=== PATIENT | female | born 1985 | race Caucasian/White ===

== ENCOUNTER 2019-01-02 10:54 | Emergency (ER) | payer OTHER ==
[~2019-01-02] VITALS: Ht 170.2 cm; Wt 64.3 kg
[2019-01-02 10:59] VITALS: BP 107/74
--- NOTE | 2019-01-02 11:18 | NUR ---
requested records from [facility].
[2019-01-02 11:50] LABS: ALANINE AMINOTRANSFERASE 39 U/L (12-78); ALBUMIN 2.2 g/dL (3.4-5.0); ANION GAP 9 mmol/L (5-15); CALCIUM 7.9 mg/dL (8.5-10.1); CHLORIDE 103 mmol/L (98-107); CREATININE 0.57 mg/dL (0.55-1.02)
[2019-01-02 11:51] LABS: INTERNATIONAL NORMALIZED RATIO 1.47 (0.93-1.1); PROTHROMBIN TIME 15.4 Seconds (9.6-11.5)
[2019-01-02 11:52] LABS: MEAN CORPUSCULAR HEMOGLOBIN 40.9 pg (27.0-34.8); MEAN CORPUSCULAR HGB CONC 34.5 g/dL (32.4-35.8); MEAN CORPUSCULAR VOLUME 118.6 fL (80-100); MEAN PLATELET VOLUME 8.1 fL (7.4-10.4); PLATELET COUNT 304 x10^3/uL (130-400); RED BLOOD COUNT 2.27 x10^6/uL (3.82-5.3); RED CELL DISTRIBUTION WIDTH 20.2 % (9.6-15.2)
[2019-01-02 11:56] LABS: ALKALINE PHOSPHATASE 138 U/L (45-117); TOTAL PROTEIN 6.6 g/dL (6.4-8.2)
[2019-01-02 11:57] LABS: BILIRUBIN,TOTAL 18.5 mg/dL (0.2-1.0)
[2019-01-02 12:21] LABS: MD YES
[2019-01-02 12:24] LABS: EOS#(MANUAL) 0.22 x10^3/uL (0.0-0.4); EOS% (MANUAL) 2 % (1-7); LYMPHS% (MANUAL) 9 % (22-44); MONOS% (MANUAL) 9 % (2-9); SEG#(MANUAL) 8.88 x10^3/uL (1.8-6.8); SEGS% (MANUAL) 80 % (42-75)
[2019-01-02 12:25] LABS: POLYCHROMASIA 1+
[2019-01-02 12:26] LABS: <PLATELET ESTIMATE> ADEQUATE; <PLT MORPHOLOGY> NORMAL PLT MORPH
[2019-01-02 12:27] LABS: ANISOCYTOSIS 1+
--- NOTE | 2019-01-02 12:34 | NUR ---
dr denny spoke with dr barreto
--- NOTE | 2019-01-02 12:34 | NUR ---
received records from [facility].
--- NOTE | 2019-01-02 12:56 | NUR ---
BREAK RN: Discharge instructions discussed with patient, verbalizes understanding. Prescription provided to patient. Patient ambulates with steady gait to discharge desk.
[2019-01-02 12:59] LABS: MICROSCOPIC INDICATED
[2019-01-02 13:05] LABS: CULTURE INDICATED? YES
== END 2019-01-02 12:59 | disposition home or self-care (01) ==
LOC: ED 12:38
DX: R17 Unspecified jaundice (principal); K70.10 Alcoholic hepatitis without ascites; E87.6 Hypokalemia
CPT/HCPCS: 36415; 76700; 80053; 80074; 81001; 82248; 83690; 83735; 84703; 85025; 85610; 85730; 87077; 87086; 87186; 99284